=== PATIENT | male | born 1950 | race Hispanic/Latino ===

== ENCOUNTER 2024-09-23 19:52 | Emergency (ER) | payer MEDICAID ==
[~2024-09-23] VITALS: Ht 152.4 cm; Wt 70.3 kg
[2024-09-23 20:16] VITALS: PULSE 50; RESP 16; TEMP 97.6
[2024-09-23] MEDS ORDERED: CEPHALEXIN500 MG PO (21:13)
[2024-09-23 22:20] VITALS: BP 161/78; PULSE 52; RESP 16; TEMP 97.6; O2SAT 95
== END 2024-09-23 22:20 | disposition home or self-care (01) ==
LOC: FSED 20:01
DX: H00.035 Abscess of left lower eyelid (principal); I10 Essential (primary) hypertension; E11.9 Type 2 diabetes mellitus without complications
CPT/HCPCS: 87071; 87186; 87205; 99282